=== PATIENT | male | born 1960 | race Caucasian/White ===

== ENCOUNTER 2017-04-16 00:02 | Emergency (ER) | payer OTHER ==
--- NOTE | 2017-04-17 06:06 | ED CLINICAL REPORT ---
Clinical Report - Physicians/Mid Levels [facility] [address] [place] [address] 04/17/2017 0:02 Patient: ROMERO WILLIS Time Seen: 00:12. Arrived- By private vehicle. Historian- patient. HISTORY OF PRESENT ILLNESS Chief Complaint: CHEST PAIN. At its maximum, severity described as severe. When seen in the E.D., it was gone. Modifying factors- relieved by nitroglycerin (two, given by paramedics). It is described as sharp and it is described as located in the right chest area and radiating to the left arm. This started last night at about 7 PM and is still present. It was abrupt in onset. Onset during emotional upset. No nausea. He has had difficulty breathing and has experienced diaphoresis. REVIEW OF SYSTEMS No pedal edema or edema, calf pain or pain or chills. No fever, sweats, palpitations, abdominal pain or black stools. No bloody stools, constipation, diarrhea, nausea or vomiting. No urinary problems. All systems otherwise negative, except as recorded above. PAST HISTORY PCP - Wesley. Problems: DVT - Deep Venous Thrombosis. Unstable Angina. Gastroesophageal Reflux. Heart Disease. Hypertension. Angioplasty 2004. Myocardial Infarction. Additional Surgeries: Hernia Repair. Leg vein bypass bryan. Medications: Warfarin 5mg on Monday. Warfarin Sodium Oral 2.5 mg, daily (%mg on Monday). Allergies: Morphine Sulfate. SOCIAL HISTORY Current every day heavy tobacco smoker (cigarette)- less than 1 pack per day. Heavy alcohol use; consumes six beers. No drug use. Residence: [place] he lives alone. FAMILY HISTORY Heart disease in first-degree relative (father); cancer in first-degree relative (mother). ADDITIONAL NOTES The nursing notes have been reviewed. PHYSICAL EXAM Vital Signs: 04/17/2017 00:15 BP: 113/69. HR: 89. RR: 16. O2 saturation: 91%. Temp: 98.3 F. Have been reviewed. Appearance: Anxious. He has ETOH on breath. Eyes: Pupils equal, round and reactive to light. ENT: Pharynx normal. Neck: Normal inspection. Neck supple. CVS: Normal heart rate and rhythm. Heart sounds normal. Respiratory: No respiratory distress. Breath sounds normal. Abdomen: Soft and nontender. Bowel sounds normal. No organomegaly. No mass. Back: Normal external inspection. Skin: Skin warm and dry. Normal skin color. Normal skin turgor. Extremities: Extremities exhibit normal ROM. No calf tenderness. No lower extremity edema. LABS, X-RAYS, AND EKG EKG: Rate: 93. Non-specific ST segment / T wave abnormalities. Changes present when compared to prior EKG. (). The study has been independently viewed by me. Abdominal CT: pancreas normal. No small bowel obstruction. Mild wall thickening of the urinary bladder could represent cystitis or chronic outlet obstruction. Advanced fatty infiltration of the liver. The study was interpreted by the radiologist and contemporaneously by me. Laboratory Tests: UA-Culture if indicated: (PATRICIA: 04/17/2017 00:50) ( [facility] 04/17/2017 01:10) Final results Test Result Flag Units (Reference) URINE COLOR YELLOW URINE APPEARANCE CLEAR URINE GLUCOSE NEGATIVE (NEGATIVE) URINE BILIRUBIN NEGATIVE (NEGATIVE) URINE KETONE NEGATIVE (NEGATIVE) URINE SPECIFIC GRAVITY <= 1.005 L (1.010-1.030) URINE PH 5.5 (5.0-8.0) URINE PROTEIN NEGATIVE (NEGATIVE) URINE UROBILINOGEN 0.2 EU/dL (0.2-1.0) URINE NITRITE NEGATIVE (NEGATIVE) URINE BLOOD TRACE-LYSED (NEGATIVE) URINE LEUK ESTERASE NEGATIVE (NEGATIVE) URINE RBC 0-1 rbc/hpf (0-1) URINE WBC 0-1 wbc/hpf (0-1) URINE EPITHELIAL CELLS 0-1 EPI/hpf (0-5) URINE BACTERIA NONE SEEN (NONE SEEN) URINE COMMENT CULT NOT INDICATED URINE CULTURES ARE SET-UP BASED ON THE FOLLOWING CRITERIA:POSITIVE NITRITEPOSITIVE LEUKOCYTE ESTERASEGREATER THAN 10 WHITE BLOOD CELLSMODERATE (2+) OR GREATER BACTERIA CBC w Diff: (PATRICIA: 04/17/2017 00:15) ( [facility] 04/17/2017 00:23) Final results Test Result Flag Units (Reference) WHITE BLOOD COUNT 6.7 K/uL (4.5-11.5) RED BLOOD COUNT 4.58 M/uL (4.50-5.90) HEMOGLOBIN 15.3 gm/dL (13.5-17.5) HEMATOCRIT 45.2 % (41.0-53.0) MEAN CELL VOLUME 99 fL (80-100) MEAN CORPUSCULAR HGB 33 pg (26-34) MEAN CORPUSCULAR HGB CONC 34 g/dL (31-37) RED CELL DISTRIBUTION WIDTH 13.3 % (11.6-14.8) PLATELET COUNT 215 K/uL (150-400) NEUTROPHIL % 37.7 L % (50-75) LYMPH % 48.8 H % (25-40) MONO % 10.3 % (3-14) EOSINOPHIL % 2.2 % (0-4) BASOPHIL % 1.0 % (0-2) PT with INR: (PATRICIA: 04/17/2017 00:15) ( Msg[facility]cvd 04/17/2017 00:34) Final results Test Result Flag Units (Reference) INR 1.7 H (0.8-1.2) Low Intensity Therapy: INR 1.5-2.0 PT range 18.5-23.1Mod.Intensity Therapy: INR 2.0-3.0 PT range 23.1-31.5High Intensity Therapy: INR 2.5-3.5 PT range 27.4-35.5High Intensity Therapy 2: INR 3.0-4.0 PT range 31.5-39.3 APTT 33 SECONDS (24-34) D-DIMER QUANTITATIVE < 0.27 L ug/mLFEU (0.27-0.52) The primary value of this quantitative assay relates toits negative predictive value (i.e. exclusion) of pulmonaryembolism/deep vein thrombosis/DIC.Elevated levels of d-dimer may also occur with:, age, cancer, inflammation, liver disease,post-op, infection, hematoma, coronary disease, peripheralarteriopathy, bleeding disorders and thrombolytic treatment.Results should be correlated with other clinical andradiological data.Testing Methodology: Latex Immunoassay Urine Drug Screen: (PATRICIA: 04/17/2017 00:50) ( [facility] Final results Test Result Flag Units (Reference) AMPHETAMINE/METHAMPHETAMINE NEGATIVE (NEGATIVE) BARBITURATE NEGATIVE (NEGATIVE) BENZODIAZEPINE NEGATIVE (NEGATIVE) CANNABINOID NEGATIVE (NEGATIVE) COCAINE NEGATIVE (NEGATIVE) ECSTASY NEGATIVE (NEGATIVE) METHADONE NEGATIVE (NEGATIVE) OPIATE NEGATIVE (NEGATIVE) The urine drug screen is a qualitative screening test fordrug overdose and abuse. All screen results should beconsidered as presumptive.Drugs screened for are as follows:BenzodiazepinesCocaineAmphetamines/MetamphetaminesTHC (Tetrahydrocannabinol)OpiatesBarbituratesEcstasyMethadonePositive results are unconfirmed. For confirmation, notifythe lab for the specimen to be sent to the reference lab.All confirmations must be performed by a differentmethodology.The ingestion of natural herbal and plant productscontaining Ephedra/Ephedra metabolites can produce in urineone or more substances capable of cross reacting withamphetamine/methamphetamine immunoassays. These testsprovide a preliminary result only. A more specificalternative chemical method must be used to obtain aconfirmed analytical result. Ethyl Alcohol: (PATRICIA: 04/17/2017 00:15) ( [facility] 04/17/2017 00:47) Final results Test Result Flag Units (Reference) ETHYL ALCOHOL 265 H mg/dL (3-10) BNP: (PATRICIA: 04/17/2017 00:15) ( [facility] 04/17/2017 00:40) Final results Test Result Flag Units (Reference) B-TYPE NATRIURETIC PEPTIDE 11.9 pg/ml (5-100) CMP: (PATRICIA: 04/17/2017 00:15) ( [facility] 04/17/2017 00:39) Final results Test Result Flag Units (Reference) GLUCOSE 91 mg/dL (70-110) BUN 6 L mg/dL (7-18) CREATININE 0.8 mg/dL (0.6-1.3) Estimated GFR >60 mL/min Estimated GFR- >60 mL/min Note: Persistent reduction over 3 months in eGFR<60 mL/min/1.73 m2 defines CKD. Patients with eGFR values>=60 mL/min/1.73 m2 may also have CKD if evidence ofpersistent proteinuria. Additional information may be foundat www.kidney.org. SODIUM 140 mmol/L (136-145) POTASSIUM 3.7 mmol/L (3.5-5.1) CHLORIDE 102 mmol/L (98-107) CARBON DIOXIDE 26 mmol/L (21-32) CALCIUM 8.4 L mg/dL (8.5-10.1) TOTAL PROTEIN 8.1 g/dL (6.4-8.2) ALBUMIN 3.5 g/dL (3.3-5.0) BILIRUBIN, TOTAL 0.7 mg/dL (0.0-1.0) ALKALINE PHOSPHATASE 91 U/L (46-116) AST (SGOT) 95 H U/L (15-37) ALT (SGPT) 104 H U/L (12-78) LIPASE 573 H U/L (73-393) AMYLASE 77 U/L (25-115) CPK 254 U/L (24-260) TROPONIN I <0.05 ng/mL (0.00-1.5) TROPONIN REFERENCE RANGE:<0.1 NEGATIVE0.1-1.5 INDETERMINANT>1.5 POSITIVE . PROGRESS AND PROCEDURES Patient/family counseled. Old medical records reviewed. Disposition: Discharged. Condition: stable. CLINICAL IMPRESSION Atypical chest pain Alcohol intoxication. Anxiety reaction. INSTRUCTIONS Avoid stimulants (such as cigarettes, coffee, cold medicines, sinus medicines, street drugs). No alcohol. Seek medical help to quit drinking. Warnings: Further evaluation is necessary. GENERAL WARNINGS: Return or contact your physician immediately if your condition worsens or changes unexpectedly, if not improving as expected, or if other problems arise. Your Current Medications: CONTINUE TAKING THE FOLLOWING MEDICATIONS: Warfarin 5mg on Monday*. Warfarin Sodium Oral : 2.5 mg daily, %mg on Monday. Understanding of the discharge instructions verbalized by patient. Follow-up with: William Olson MD, [facility], [phone], [facility], [address] [place] [address] [address], [address] Follow up today. Call for an appointment. (Electronically signed by Jaylan Jc MD 04/18/2017 18:02)
--- NOTE | 2017-04-17 06:06 | ED CLINICAL REPORT ---
Clinical Report - Physicians/Mid Levels [facility] [address] [place] [address] 04/17/2017 0:02 Patient: ROMERO WILLIS Time Seen: 00:12. Arrived- By private vehicle. Historian- patient. HISTORY OF PRESENT ILLNESS Chief Complaint: CHEST PAIN. At its maximum, severity described as severe. When seen in the E.D., it was gone. Modifying factors- relieved by nitroglycerin (two, given by paramedics). It is described as sharp and it is described as located in the right chest area and radiating to the left arm. This started last night at about 7 PM and is still present. It was abrupt in onset. Onset during emotional upset. No nausea. He has had difficulty breathing and has experienced diaphoresis. REVIEW OF SYSTEMS No pedal edema or edema, calf pain or pain or chills. No fever, sweats, palpitations, abdominal pain or black stools. No bloody stools, constipation, diarrhea, nausea or vomiting. No urinary problems. All systems otherwise negative, except as recorded above. PAST HISTORY PCP - Wesley. Problems: DVT - Deep Venous Thrombosis. Unstable Angina. Gastroesophageal Reflux. Heart Disease. Hypertension. Angioplasty 2004. Myocardial Infarction. Additional Surgeries: Hernia Repair. Leg vein bypass bryan. Medications: Warfarin 5mg on Monday. Warfarin Sodium Oral 2.5 mg, daily (%mg on Monday). Allergies: Morphine Sulfate. SOCIAL HISTORY Current every day heavy tobacco smoker (cigarette)- less than 1 pack per day. Heavy alcohol use; consumes six beers. No drug use. Residence: [place] he lives alone. FAMILY HISTORY Heart disease in first-degree relative (father); cancer in first-degree relative (mother). ADDITIONAL NOTES The nursing notes have been reviewed. PHYSICAL EXAM Vital Signs: 04/17/2017 00:15 BP: 113/69. HR: 89. RR: 16. O2 saturation: 91%. Temp: 98.3 F. Have been reviewed. Appearance: Anxious. He has ETOH on breath. Eyes: Pupils equal, round and reactive to light. ENT: Pharynx normal. Neck: Normal inspection. Neck supple. CVS: Normal heart rate and rhythm. Heart sounds normal. Respiratory: No respiratory distress. Breath sounds normal. Abdomen: Soft and nontender. Bowel sounds normal. No organomegaly. No mass. Back: Normal external inspection. Skin: Skin warm and dry. Normal skin color. Normal skin turgor. Extremities: Extremities exhibit normal ROM. No calf tenderness. No lower extremity edema. LABS, X-RAYS, AND EKG EKG: Rate: 93. Non-specific ST segment / T wave abnormalities. Changes present when compared to prior EKG. (). The study has been independently viewed by me. Abdominal CT: pancreas normal. No small bowel obstruction. Mild wall thickening of the urinary bladder could represent cystitis or chronic outlet obstruction. Advanced fatty infiltration of the liver. The study was interpreted by the radiologist and contemporaneously by me. Laboratory Tests: UA-Culture if indicated: (PATRICIA: 04/17/2017 00:50) ( [facility] 04/17/2017 01:10) Final results Test Result Flag Units (Reference) URINE COLOR YELLOW URINE APPEARANCE CLEAR URINE GLUCOSE NEGATIVE (NEGATIVE) URINE BILIRUBIN NEGATIVE (NEGATIVE) URINE KETONE NEGATIVE (NEGATIVE) URINE SPECIFIC GRAVITY <= 1.005 L (1.010-1.030) URINE PH 5.5 (5.0-8.0) URINE PROTEIN NEGATIVE (NEGATIVE) URINE UROBILINOGEN 0.2 EU/dL (0.2-1.0) URINE NITRITE NEGATIVE (NEGATIVE) URINE BLOOD TRACE-LYSED (NEGATIVE) URINE LEUK ESTERASE NEGATIVE (NEGATIVE) URINE RBC 0-1 rbc/hpf (0-1) URINE WBC 0-1 wbc/hpf (0-1) URINE EPITHELIAL CELLS 0-1 EPI/hpf (0-5) URINE BACTERIA NONE SEEN (NONE SEEN) URINE COMMENT CULT NOT INDICATED URINE CULTURES ARE SET-UP BASED ON THE FOLLOWING CRITERIA:POSITIVE NITRITEPOSITIVE LEUKOCYTE ESTERASEGREATER THAN 10 WHITE BLOOD CELLSMODERATE (2+) OR GREATER BACTERIA CBC w Diff: (PATRICIA: 04/17/2017 00:15) ( [facility] 04/17/2017 00:23) Final results Test Result Flag Units (Reference) WHITE BLOOD COUNT 6.7 K/uL (4.5-11.5) RED BLOOD COUNT 4.58 M/uL (4.50-5.90) HEMOGLOBIN 15.3 gm/dL (13.5-17.5) HEMATOCRIT 45.2 % (41.0-53.0) MEAN CELL VOLUME 99 fL (80-100) MEAN CORPUSCULAR HGB 33 pg (26-34) MEAN CORPUSCULAR HGB CONC 34 g/dL (31-37) RED CELL DISTRIBUTION WIDTH 13.3 % (11.6-14.8) PLATELET COUNT 215 K/uL (150-400) NEUTROPHIL % 37.7 L % (50-75) LYMPH % 48.8 H % (25-40) MONO % 10.3 % (3-14) EOSINOPHIL % 2.2 % (0-4) BASOPHIL % 1.0 % (0-2) PT with INR: (PATRICIA: 04/17/2017 00:15) ( MsgRcvd 04/17/2017 00:34) Final results Test Result Flag Units (Reference) INR 1.7 H (0.8-1.2) Low Intensity Therapy: INR 1.5-2.0 PT range 18.5-23.1Mod.Intensity Therapy: INR 2.0-3.0 PT range 23.1-31.5High Intensity Therapy: INR 2.5-3.5 PT range 27.4-35.5High Intensity Therapy 2: INR 3.0-4.0 PT range 31.5-39.3 APTT 33 SECONDS (24-34) D-DIMER QUANTITATIVE < 0.27 L ug/mLFEU (0.27-0.52) The primary value of this quantitative assay relates toits negative predictive value (i.e. exclusion) of pulmonaryembolism/deep vein thrombosis/DIC.Elevated levels of d-dimer may also occur with:, age, cancer, inflammation, liver disease,post-op, infection, hematoma, coronary disease, peripheralarteriopathy, bleeding disorders and thrombolytic treatment.Results should be correlated with other clinical andradiological data.Testing Methodology: Latex Immunoassay Urine Drug Screen: (PATRICIA: 04/17/2017 00:50) ( [facility] Final results Test Result Flag Units (Reference) AMPHETAMINE/METHAMPHETAMINE NEGATIVE (NEGATIVE) BARBITURATE NEGATIVE (NEGATIVE) BENZODIAZEPINE NEGATIVE (NEGATIVE) CANNABINOID NEGATIVE (NEGATIVE) COCAINE NEGATIVE (NEGATIVE) ECSTASY NEGATIVE (NEGATIVE) METHADONE NEGATIVE (NEGATIVE) OPIATE NEGATIVE (NEGATIVE) The urine drug screen is a qualitative screening test fordrug overdose and abuse. All screen results should beconsidered as presumptive.Drugs screened for are as follows:BenzodiazepinesCocaineAmphetamines/MetamphetaminesTHC (Tetrahydrocannabinol)OpiatesBarbituratesEcstasyMethadonePositive results are unconfirmed. For confirmation, notifythe lab for the specimen to be sent to the reference lab.All confirmations must be performed by a differentmethodology.The ingestion of natural herbal and plant productscontaining Ephedra/Ephedra metabolites can produce in urineone or more substances capable of cross reacting withamphetamine/methamphetamine immunoassays. These testsprovide a preliminary result only. A more specificalternative chemical method must be used to obtain aconfirmed analytical result. Ethyl Alcohol: (PATRICIA: 04/17/2017 00:15) ( [facility] 04/17/2017 00:47) Final results Test Result Flag Units (Reference) ETHYL ALCOHOL 265 H mg/dL (3-10) BNP: (PATRICIA: 04/17/2017 00:15) ( [facility] 04/17/2017 00:40) Final results Test Result Flag Units (Reference) B-TYPE NATRIURETIC PEPTIDE 11.9 pg/ml (5-100) CMP: (PATRICIA: 04/17/2017 00:15) ( [facility] 04/17/2017 00:39) Final results Test Result Flag Units (Reference) GLUCOSE 91 mg/dL (70-110) BUN 6 L mg/dL (7-18) CREATININE 0.8 mg/dL (0.6-1.3) Estimated GFR >60 mL/min Estimated GFR- >60 mL/min Note: Persistent reduction over 3 months in eGFR<60 mL/min/1.73 m2 defines CKD. Patients with eGFR values>=60 mL/min/1.73 m2 may also have CKD if evidence ofpersistent proteinuria. Additional information may be foundat www.kidney.org. SODIUM 140 mmol/L (136-145) POTASSIUM 3.7 mmol/L (3.5-5.1) CHLORIDE 102 mmol/L (98-107) CARBON DIOXIDE 26 mmol/L (21-32) CALCIUM 8.4 L mg/dL (8.5-10.1) TOTAL PROTEIN 8.1 g/dL (6.4-8.2) ALBUMIN 3.5 g/dL (3.3-5.0) BILIRUBIN, TOTAL 0.7 mg/dL (0.0-1.0) ALKALINE PHOSPHATASE 91 U/L (46-116) AST (SGOT) 95 H U/L (15-37) ALT (SGPT) 104 H U/L (12-78) LIPASE 573 H U/L (73-393) AMYLASE 77 U/L (25-115) CPK 254 U/L (24-260) TROPONIN I <0.05 ng/mL (0.00-1.5) TROPONIN REFERENCE RANGE:<0.1 NEGATIVE0.1-1.5 INDETERMINANT>1.5 POSITIVE . PROGRESS AND PROCEDURES Patient/family counseled. Old medical records reviewed. Disposition: Discharged. Condition: stable. CLINICAL IMPRESSION Atypical chest pain Alcohol intoxication. Anxiety reaction. INSTRUCTIONS Avoid stimulants (such as cigarettes, coffee, cold medicines, sinus medicines, street drugs). No alcohol. Seek medical help to quit drinking. Warnings: Further evaluation is necessary. GENERAL WARNINGS: Return or contact your physician immediately if your condition worsens or changes unexpectedly, if not improving as expected, or if other problems arise. Your Current Medications: CONTINUE TAKING THE FOLLOWING MEDICATIONS: Warfarin 5mg on Monday*. Warfarin Sodium Oral : 2.5 mg daily, %mg on Monday. Understanding of the discharge instructions verbalized by patient. Follow-up with: William Olson MD, [facility], [phone], [facility], [address] [place] [address] [address], [address] Follow up today. Call for an appointment. (Electronically signed by Jaylan Jc MD 04/18/2017 18:02)
--- NOTE | 2017-04-17 06:07 | ED ORDER SUMMARY ---
..... Patient: ROMERO WILLIS OrderSheet [facility] VisitID: [id number] [place], [place] [id number], M Registration Date/Time: 04/17/2017 ORDER SHEET Weight: 78.9 kg (stated) Allergies: Morphine Sulfate GENERAL ORDERS: Chest 1V Urgent (00:04/17/2017 Luis BACH) (Ack 0:15 [facility]) (1:05 JRomanelli R.N.) Talent Program Manager (Continuous) (00:04/17/2017 Luis BACH) (Ack 0:15 [facility]) (0:32 JRomanelli R.N.) CBC w Diff Urgent (00:04/17/2017 Luis BACH) (Ack 0:15 [facility]) (0:32 JRomanelli R.N.) (0:33 [facility]) CMP Urgent (00:04/17/2017 Luis BACH) (Ack 0:15 [facility]) (0:32 JRomanelli R.N.) (0:33 [facility]) UA-Culture if indicated Urgent (00:04/17/2017 Luis BACH) (Ack 0:15 [facility]ag[facility] Consult[facility]) (1:00 JRomanelli R.N.) PT with INR Urgent (00:04/17/2017 Luis BACH) (Ack 0:15 [facility]) (0:32 JRomanelli R.N.) (0:33 [facility]) PTT Urgent (00:04/17/2017 Luis BACH) (Ack 0:15 [facility]) (0:32 JRomanelli R.N.) (0:33 [facility]) BNP Urgent (00:04/17/2017 Luis BACH) (Ack 0:15 [facility]) (0:32 JRomanelli R.N.) (0:33 [facility]) D-Dimer Urgent (00:04/17/2017 Luis BACH) (Ack 0:15 [facility]) (0:32 JRomanelli R.N.) (0:33 [facility]) Amylase Urgent (00:04/17/2017 Luis BACH) (Ack 0:15 [facility]) (0:32 JRomanelli R.N.) (0:33 [facility]) Lipase Urgent (00:04/17/2017 Luis BACH) (Ack 0:15 [facility]) (0:32 JRomanelli R.N.) (0:33 [facility]) CPK Urgent (00:04/17/2017 Luis BACH) (Ack 0:15 [facility]) (0:32 JRomanelli R.N.) (0:33 [facility]) Troponin-I Urgent (00:04/17/2017 Luis BACH) (Ack 0:15 [facility]) (0:32 JRomanelli R.N.) (0:33 [facility]) Oxygen (2 L/min) (NC) (00:04/17/2017 Luis BACH) (Ack 0:15 [facility]) (0:32 JRomanelli R.N.) Pulse oximeter (00:04/17/2017 Luis BACH) (Ack 0:15 [facility]) (0:32 JRomanelli R.N.) EKG - ER Stat (00:04/17/2017 Luis BACH) (Ack 0:15 [facility]) (0:17 [facility]) Ethyl Alcohol Urgent (00:04/17/2017 omanelli R.N. verbal order read back to Luis BACH) (0:32 JRomanelli R.N.) (0:33 [facility]) (Cancelled: Duplicate Order0:48 Jose Felli R.N.) Ethyl Alcohol Urgent (00:04/17/2017 Luis BACH) (0:48 Luis BACH) (Cancelled: Other0:48 Luis BACH) (Cancelled: Duplicate Order0:49 [facility]) Urine Drug Screen Urgent (00:04/17/2017 Luis BACH) (Ack 0:50 [facility]) (1:05 Jose Felli R.N.) CT Abd/Pel w Cont (No) (see report) Urgent (00:46 04/17/2017 Luis BACH) (Ack 0:50 [facility]) (1:53 [facility]) CPK (Second set to be drawn at 5:15 AM) Urgent (03:55 04/17/2017 Luis BACH) (Ack 3:59 Sh[facility]) Troponin-I (Second set to be drawn at 5:15 AM) Urgent (03:55 04/17/2017 Luis BACH) (Ack 3:59 [facility]) MEDICATION ORDERS: Aspirin PO 325 mg (NOW) (00:13 04/17/2017 Luis BACH) (Ack 0:43 RMarsden R.N.) (Cancelled: Pt given ASA 81mg x 4 by EMS in transit1:04 Cally R.N.) IV FLUIDS: IV Saline Lock (00:13 04/17/2017 Luis BACH) (0:32 omanelli R.N.) IV NS : initial bolus 500 mL (1000 mL/hr), then 125 mL/hr for 4h (NOW); Urgent (00:46 04/17/2017 Luis BACH) (1:00 JRomanelli R.N.) ORDER SHEET NOTES: [Electronically signed by Hector Greene R.N. (06:04/17/2017)] [Electronically signed by Jaylan Jc MD (18:02 04/18/2017)] [Electronically locked/signed by Hector Greene R.N. (:04/17/2017)]
--- NOTE | 2017-04-17 06:07 | ED ORDER SUMMARY ---
..... Patient: ROMERO WILLIS OrderSheet [facility] VisitID: [id number] [place], [place] [id number], M Registration Date/Time: 04/17/2017 ORDER SHEET Weight: 78.9 kg (stated) Allergies: Morphine Sulfate GENERAL ORDERS: Chest 1V Urgent (00:04/17/2017 Luis BACH) (Ack 0:15 CHagerty ER Gastroenterology Manager) (1:05 JRomanelli R.N.) Documentation Analyst (Continuous) (00:04/17/2017 Luis BACH) (Ack 0:15 CHagerty ER Gastroenterology Manager) (0:32 JRomanelli R.N.) CBC w Diff Urgent (00:04/17/2017 Luis BACH) (Ack 0:15 CHagerty ER Gastroenterology Manager) (0:32 JRomanelli R.N.) (0:33 CHagerty ER Gastroenterology Manager) CMP Urgent (00:04/17/2017 Luis BACH) (Ack 0:15 CHagerty ER Gastroenterology Manager) (0:32 JRomanelli R.N.) (0:33 CHagerty ER Gastroenterology Manager) UA-Culture if indicated Urgent (00:04/17/2017 Luis BACH) (Ack 0:15 CHagclint ER Gastroenterology Manager) (1:00 JRomanelli R.N.) PT with INR Urgent (00:04/17/2017 Luis BACH) (Ack 0:15 CHagclint ER Gastroenterology Manager) (0:32 JRomanelli R.N.) (0:33 CHagerty ER Gastroenterology Manager) PTT Urgent (00:04/17/2017 Luis BACH) (Ack 0:15 CHagerty ER Gastroenterology Manager) (0:32 JRomanelli R.N.) (0:33 CHagerty ER Gastroenterology Manager) BNP Urgent (00:04/17/2017 Luis BACH) (Ack 0:15 CHagerty ER Gastroenterology Manager) (0:32 JRomanelli R.N.) (0:33 CHagerty ER Gastroenterology Manager) D-Dimer Urgent (00:04/17/2017 Luis BACH) (Ack 0:15 CHagerty ER Gastroenterology Manager) (0:32 JRomanelli R.N.) (0:33 CHagerty ER Gastroenterology Manager) Amylase Urgent (00:04/17/2017 Luis BACH) (Ack 0:15 CHagerty ER Gastroenterology Manager) (0:32 JRomanelli R.N.) (0:33 CHagerty ER Gastroenterology Manager) Lipase Urgent (00:04/17/2017 Luis BACH) (Ack 0:15 CHagerty ER Gastroenterology Manager) (0:32 JRomanelli R.N.) (0:33 CHagerty ER Gastroenterology Manager) CPK Urgent (00:04/17/2017 Luis BACH) (Ack 0:15 CHagerty ER Gastroenterology Manager) (0:32 JRomanelli R.N.) (0:33 CHagerty ER Gastroenterology Manager) Troponin-I Urgent (00:04/17/2017 Luis BACH) (Ack 0:15 CHagerty ER Gastroenterology Manager) (0:32 JRomanelli R.N.) (0:33 CHagerty ER Gastroenterology Manager) Oxygen (2 L/min) (NC) (00:04/17/2017 Luis BACH) (Ack 0:15 CHagerty ER Gastroenterology Manager) (0:32 JRomanelli R.N.) Pulse oximeter (00:04/17/2017 Luis BACH) (Ack 0:15 CHagerty ER Gastroenterology Manager) (0:32 JRomanelli R.N.) EKG - ER Stat (00:04/17/2017 Luis BACH) (Ack 0:15 CHagerty ER Gastroenterology Manager) (0:17 CHagerty ER Gastroenterology Manager) Ethyl Alcohol Urgent (00:04/17/2017 omanelli R.N. verbal order read back to Luis BACH) (0:32 JRomanelli R.N.) (0:33 CHagerty ER Gastroenterology Manager) (Cancelled: Duplicate Order0:48 Jsoe Felli R.N.) Ethyl Alcohol Urgent (00:04/17/2017 Luis BACH) (0:48 Luis BACH) (Cancelled: Other0:48 Luis BACH) (Cancelled: Duplicate Order0:49 CHagerty ER Gastroenterology Manager) Urine Drug Screen Urgent (00:04/17/2017 Luis BACH) (Ack 0:50 CHagerty ER Gastroenterology Manager) (1:05 Jose Felli R.N.) CT Abd/Pel w Cont (No) (see report) Urgent (00:46 04/17/2017 Luis BACH) (Ack 0:50 CHagerty ER Gastroenterology Manager) (1:53 CHagerty ER Gastroenterology Manager) CPK (Second set to be drawn at 5:15 AM) Urgent (03:55 04/17/2017 Luis BACH) (Ack 3:59 Shola ER Gastroenterology Manager) Troponin-I (Second set to be drawn at 5:15 AM) Urgent (03:55 04/17/2017 Luis BACH) (Ack 3:59 CHagerty ER Gastroenterology Manager) MEDICATION ORDERS: Aspirin PO 325 mg (NOW) (00:13 04/17/2017 Luis BACH) (Ack 0:43 RMarsden R.N.) (Cancelled: Pt given ASA 81mg x 4 by EMS in transit1:04 Cally R.N.) IV FLUIDS: IV Saline Lock (00:13 04/17/2017 Luis BACH) (0:32 omanelli R.N.) IV NS : initial bolus 500 mL (1000 mL/hr), then 125 mL/hr for 4h (NOW); Urgent (00:46 04/17/2017 Luis BACH) (1:00 JRomanelli R.N.) ORDER SHEET NOTES: [Electronically signed by Hecotr Greene R.N. (06:04/17/2017)] [Electronically signed by Jaylan Jc MD (18:02 04/18/2017)] [Electronically locked/signed by Hector Greene R.N. (:04/17/2017)]
--- NOTE | 2017-04-17 06:07 | ED NURSING NOTES ---
Clinical Report - Nurses [facility] [address] [place] [address] 04/17/2017 0:02 [id number] Triage time 00:10 Apr 17 2017. Chief Complaint: CHEST PAIN. Alert. ZAFAR COMA SCORE: [place] Coma Scale: 15- eyes open spontaneously (4); best verbal response- oriented x 4 (5); best motor response- obeys commands (6). --00:33 Hector Hassan R.N. 00:15 04/17/17. BP: 113/69. HR: 89. RR: 16. O2 saturation: 91% on room air. Temp: 98.3 F. --00:33 Hector Hassan R.N. Acuity: LEVEL 3. --00:33 Hector Hassan R.N. Weight: 78.9 kg stated. Height/Length: 67 inches Per Patient. BMI: 27.3. --00:20 Hector Hassan R.N. Medications Warfarin 5mg on Monday. Warfarin Sodium Oral 2.5 mg, daily (%mg on Monday). --00:26 Hector Hassan R.N. Allergies Morphine Sulfate. --00:26 Hector Hassan R.N. History Arrived by EMS. Historian: EMS and patient. Unaccompanied. ( Chest Pain starting about 9 hours ago. Pt states that he didn't feel good after his second beer.). Onset. (about 9 hours ago). Treatment SERVICE DESK LEAD: (Nitrospray x 2 and IV start, Aspirin 81 mg x 4 po given by EMS in transit). PAST MEDICAL HX: Heart disease. SOCIAL HX: Heavy tobacco smoker (cigarette)- less than 1 pack per day. Alcohol use; consumes six beers. No drug use. No infectious disease exposure. ABUSE ASSESSMENT: No report of abuse. FALL RISK ASSESSMENT: Fall risk assessment completed. No fall risk identified. NUTRITIONAL RISK ASSESSMENT: The nutritional risk assessment revealed no deficiencies. FUNCTIONAL ASSESSMENT: Functional assessment: no impairments noted. LEARNING NEEDS ASSESSMENT: The learning needs assessment revealed no barriers. SKIN INTEGRITY ASSESSMENT: Skin integrity risk assessment completed. No skin integrity risk identified. --00:33 Hector Hassan R.N. PROBLEMS: DVT - Deep Venous Thrombosis. Unstable Angina. Gastroesophageal Reflux. Heart Disease. Hypertension. Angioplasty 2005. Myocardial Infarction. --00:27 Hector Hassan R.N. ADDITIONAL SURGERIES: Hernia Repair. Leg vein bypass bryan. --00:27 Hector Hassan R.N. Interventions ID and allergy band on patient. To treatment room. --00:33 Hector Hassan R.N. NURSING PROGRESS NOTES 00:21 04/17/2017 Site #1 started via IV in the left antecubital space with an 18g angiocath, with aseptic technique and good blood return; one attempt. Blood drawn: rainbow set. Labeled in the presence of the patient and sent to the lab. Saline lock flushed with 10 mL saline (start by ALEXEY Bowser). --00:31 Hector Hassan R.N. EKG time: (00:10). EKG was performed by a tech and shown to the ED physician. --00:55 Agueda Gresham 00:50 04/17/2017 Started bag #1 1000 mL IV Fluids IV NS (Saline); bolus of 500 mL over 30 minute(s) then at 125 mL/hr over 4 hour(s) via site #1 via IV pump. Allergies verified and confirmed 5 rights. IV patency established. IV site checked: no pain, redness, or swelling. IV flushed thoroughly pre- and post-medication administration. --01:00 Hector Hassan R.N. 00:45. Oxygen administered. upstairs maid, pulse oximeter and NIBP monitor placed on patient; mobility architect- Lead II and V1; monitor alarms on. Patient gowned. Reassurance given. Patient identifiers checked. Call light placed in reach. Patient ready for evaluation- chart flagged and ED physician notified. --01:18 Hector Hassan R.N. 01:10 04/17/17. Patient ID band checked for patient name, birthdate and medical record number: patient confirmed. Clean catch urine collected with return of yellow-colored clear urine; odor is normal; sample sent to lab for urinalysis and culture. Specimen labeled in the presence of the patient. --01:18 Hector Hassan R.N. 03:14. ( patient is very concerned about missing the bus to [place] in the morning. He has removed himself from the monitor and has changed from his gown into his clothing. ED MD notified. Patient agreed to stay for a 05:15 trop draw after talking with MD. Patient repeatedly states "I just really have to get out of here. I think I just had anxiety. I dont know anyone here and I have to make it to the bus on time"). --05:23 Vaishnavi Sevilla R.N. 05:03. ( blood draw from existing IV. Patient continues to voice concern about making the bus on time. This RN showed patient the bus schedule for reassurance. Patient sitting calmly in room.). --05:25 Vaishnavi Sevilla R.N. 05:40 04/17/17. BP: 134/77. HR: 75. RR: 14. O2 saturation: 97%. Temp: deferred. Pain level now: 0/10. --05:41 Vaishnavi Sevilla R.N. 06:17. The patient is calm and resting quietly. RESPIRATORY: No respiratory distress. SKIN: Skin is warm and dry. Skin color within normal limits. --06:24 Hector Greene R.N. DISPOSITION / DISCHARGE 06:08 04/17/17. BP: 144/83. HR: 84. RR: 16. O2 saturation: 98% on room air. Pain level now: 0/10. --06:24 Hector Greene R.N. Departure time: 06:19. Condition at departure: stable. No learning barriers present. Discharge instructions provided and reviewed with the patient. Patient verbalized understanding. Written instructions provided in Yakut. The patient was discharged home and unaccompanied at time of discharge. He left the Emergency Department ambulatory and via bus and with fare provided. FALL RISK ASSESSMENT: Fall risk assessment completed. No fall risk identified. --06:24 Hector Greene R.N. 04:36 04/17/2017 IV Fluids IV NS Discontinued: bag #1 infused. Total amount infused: 1000 mL. IV patency established. IV site checked: no pain, redness, or swelling. IV flushed thoroughly. --06:26 eHctor Greene R.N. 06:17 04/17/2017 Site #1 removed upon discharge. Catheter intact. Bandage applied. --06:24 Hector Greene R.N. Locked/Released at 04/17/2017 6:26 by Hector Greene R.N.
--- NOTE | 2017-04-17 06:07 | ED NURSING NOTES ---
Clinical Report - Nurses [facility] [address] [place] [address] 04/17/2017 0:02 [id number] Triage time 00:10 Apr 17 2017. Chief Complaint: CHEST PAIN. Alert. ZAFAR COMA SCORE: [place] Coma Scale: 15- eyes open spontaneously (4); best verbal response- oriented x 4 (5); best motor response- obeys commands (6). --00:33 Hector Hassan R.N. 00:15 04/17/17. BP: 113/69. HR: 89. RR: 16. O2 saturation: 91% on room air. Temp: 98.3 F. --00:33 Hector Hassan R.N. Acuity: LEVEL 3. --00:33 Hector Hassan R.N. Weight: 78.9 kg stated. Height/Length: 67 inches Per Patient. BMI: 27.3. --00:20 Hector Hassan R.N. Medications Warfarin 5mg on Monday. Warfarin Sodium Oral 2.5 mg, daily (%mg on Monday). --00:26 Hector Hassan R.N. Allergies Morphine Sulfate. --00:26 Hector Hassan R.N. History Arrived by EMS. Historian: EMS and patient. Unaccompanied. ( Chest Pain starting about 9 hours ago. Pt states that he didn't feel good after his second beer.). Onset. (about 9 hours ago). Treatment DIVORCE LAWYER: (Nitrospray x 2 and IV start, Aspirin 81 mg x 4 po given by EMS in transit). PAST MEDICAL HX: Heart disease. SOCIAL HX: Heavy tobacco smoker (cigarette)- less than 1 pack per day. Alcohol use; consumes six beers. No drug use. No infectious disease exposure. ABUSE ASSESSMENT: No report of abuse. FALL RISK ASSESSMENT: Fall risk assessment completed. No fall risk identified. NUTRITIONAL RISK ASSESSMENT: The nutritional risk assessment revealed no deficiencies. FUNCTIONAL ASSESSMENT: Functional assessment: no impairments noted. LEARNING NEEDS ASSESSMENT: The learning needs assessment revealed no barriers. SKIN INTEGRITY ASSESSMENT: Skin integrity risk assessment completed. No skin integrity risk identified. --00:33 Hector Hassan R.N. PROBLEMS: DVT - Deep Venous Thrombosis. Unstable Angina. Gastroesophageal Reflux. Heart Disease. Hypertension. Angioplasty 2005. Myocardial Infarction. --00:27 Hector Hassan R.N. ADDITIONAL SURGERIES: Hernia Repair. Leg vein bypass bryan. --00:27 Hector Hassan R.N. Interventions ID and allergy band on patient. To treatment room. --00:33 Hector Hassan R.N. NURSING PROGRESS NOTES 00:21 04/17/2017 Site #1 started via IV in the left antecubital space with an 18g angiocath, with aseptic technique and good blood return; one attempt. Blood drawn: rainbow set. Labeled in the presence of the patient and sent to the lab. Saline lock flushed with 10 mL saline (start by ALEXEY Bowser). --00:31 Hector Hassan R.N. EKG time: (00:10). EKG was performed by a tech and shown to the ED physician. --00:55 Ageuda Gresham 00:50 04/17/2017 Started bag #1 1000 mL IV Fluids IV NS (Saline); bolus of 500 mL over 30 minute(s) then at 125 mL/hr over 4 hour(s) via site #1 via IV pump. Allergies verified and confirmed 5 rights. IV patency established. IV site checked: no pain, redness, or swelling. IV flushed thoroughly pre- and post-medication administration. --01:00 Hector Hassan R.N. 00:45. Oxygen administered. ballast cleaning operator, pulse oximeter and NIBP monitor placed on patient; glazier metal furniture- Lead II and V1; monitor alarms on. Patient gowned. Reassurance given. Patient identifiers checked. Call light placed in reach. Patient ready for evaluation- chart flagged and ED physician notified. --01:18 Hector Hassan R.N. 01:10 04/17/17. Patient ID band checked for patient name, birthdate and medical record number: patient confirmed. Clean catch urine collected with return of yellow-colored clear urine; odor is normal; sample sent to lab for urinalysis and culture. Specimen labeled in the presence of the patient. --01:18 Hector Hassan R.N. 03:14. ( patient is very concerned about missing the bus to [place] in the morning. He has removed himself from the monitor and has changed from his gown into his clothing. ED MD notified. Patient agreed to stay for a 05:15 trop draw after talking with MD. Patient repeatedly states "I just really have to get out of here. I think I just had anxiety. I dont know anyone here and I have to make it to the bus on time"). --05:23 Vaishnavi Sevilla R.N. 05:03. ( blood draw from existing IV. Patient continues to voice concern about making the bus on time. This RN showed patient the bus schedule for reassurance. Patient sitting calmly in room.). --05:25 Vaishnavi Sevilla R.N. 05:40 04/17/17. BP: 134/77. HR: 75. RR: 14. O2 saturation: 97%. Temp: deferred. Pain level now: 0/10. --05:41 Vaishnavi Sevilla R.N. 06:17. The patient is calm and resting quietly. RESPIRATORY: No respiratory distress. SKIN: Skin is warm and dry. Skin color within normal limits. --06:24 Hector Greene R.N. DISPOSITION / DISCHARGE 06:08 04/17/17. BP: 144/83. HR: 84. RR: 16. O2 saturation: 98% on room air. Pain level now: 0/10. --06:24 Hector Greene R.N. Departure time: 06:19. Condition at departure: stable. No learning barriers present. Discharge instructions provided and reviewed with the patient. Patient verbalized understanding. Written instructions provided in Kinyarwanda. The patient was discharged home and unaccompanied at time of discharge. He left the Emergency Department ambulatory and via bus and with fare provided. FALL RISK ASSESSMENT: Fall risk assessment completed. No fall risk identified. --06:24 Hector Greene R.N. 04:36 04/17/2017 IV Fluids IV NS Discontinued: bag #1 infused. Total amount infused: 1000 mL. IV patency established. IV site checked: no pain, redness, or swelling. IV flushed thoroughly. --06:26 Hector Greene R.N. 06:17 04/17/2017 Site #1 removed upon discharge. Catheter intact. Bandage applied. --06:24 Hector Greene R.N. Locked/Released at 04/17/2017 6:26 by Hector Greene R.N.
--- NOTE | 2017-04-17 07:57 | DIAGNOSTIC IMAGING REPORT ---
PROCEDURE: XR CHEST 1 VIEW INDICATION: CHEST PAIN TECHNIQUE: Single view chest. 01:03 hours COMPARISON: 01/12/2012 FINDINGS: Very low lung volumes, chronic. Stable cardiomediastinal contour. No central venous congestion. The visible lung quintero are clear. Mild degenerative changes in the shoulders. IMPRESSION: 1. Very low lung volumes. 2. No acute process, stable compared to the previous study.
--- NOTE | 2017-04-17 08:28 | DIAGNOSTIC IMAGING REPORT ---
PROCEDURE: ABDOMEN/PELVIS WITH CONTRAST CLINICAL INDICATION: PANCREATITIS TECHNIQUE: 125 ml of Isovue 300 were injected intravenously and axial images were obtained of the abdomen and pelvis with sagittal and coronal reformations. COMPARISON: None. FINDINGS: ABDOMEN: Moderate strandy bibasilar atelectasis. Deformity of prior left-sided lateral rib fractures. No pleural effusions. The profound hypodensity throughout the liver with relative sparing of the inferior vena cava. No liver masses. Slightly thickened, nodular appearance to the adrenal glands, left worse than right. Normal pancreas. Surgically absent spleen. Tiny cortical medullary right renal cyst. Small right lower pole renal scarring. The abdominal aorta is normal in its course and caliber. Minimal calcific atherosclerosis. There are no suspicious calcifications, retroperitoneal adenopathy or masses. The stomach, upper bowel loops, and mesentery are normal. Intact anterior abdominal wall. No free fluid or inflammation. PELVIS: The appendix and pelvic small bowel loops are normal. Normal amount of stool in the colon and rectum. The prostate gland is enlarged. The urinary bladder wall is mildly thickened. The seminal vesicles, and pelvic vessels are normal. Small fat containing left inguinal hernia. No adenopathy, free fluid, or pelvic mass. A partial ankylosis right sacroiliac joint. Severe disc height loss at L5-S1. Mild degeneration of the right hip joint. IMPRESSION: 1. Severe hepatic steatosis. 2. No CT evidence of pancreatic inflammation. 3. Mild wall thickening of the urinary bladder which may be secondary to cystitis or outlet obstruction. 4. Mildly enlarged prostate gland. 5. Preliminary report by Dr. Mesfin Hurd of [facility] radiology. All CT scans at this facility use dose modulation, iterative reconstruction, and/or weight-based dosing when appropriate to reduce radiation dose to as low as reasonably achievable.
--- NOTE | 2017-04-18 18:03 | ED DISCHARGE INSTRUCTIONS ---
Patient: ROMERO WILLIS General Instructions [facility] VisitID: [id number] [place] [address] 56y, M Registration Date/Time: 04/17/2017 Atypical chest pain Alcohol intoxication. Anxiety reaction. INSTRUCTIONS Avoid stimulants (such as cigarettes, coffee, cold medicines, sinus medicines, street drugs). No alcohol. Seek medical help to quit drinking. Warnings: Further evaluation is necessary. GENERAL WARNINGS: Return or contact your physician immediately if your condition worsens or changes unexpectedly, if not improving as expected, or if other problems arise. Your Current Medications: CONTINUE TAKING THE FOLLOWING MEDICATIONS: Warfarin 5mg on Monday*. Warfarin Sodium Oral : 2.5 mg daily, %mg on Monday. Understanding of the discharge instructions verbalized by patient. Follow-up with: William Olson MD, [facility], [phone], [facility], [address] [place] [address].[place] [address] Follow up today. Call for an appointment. ADDITIONAL INFORMATION Chest Pain, Uncertain Cause Chest pain can happen for a number of reasons. Sometimes the cause can not be determined. If yourcondition does not seem serious, and your pain does not appear to be coming from your heart, your doctor may recommend watching it closely. Sometimes the signs of a serious problem take more time to appear. Therefore, watch for the warning signs listed below. Home care After your visit, follow these recommendations: Rest today and avoid strenuous activity. Take any prescribed medicine as directed. Follow-up care Follow up with your doctor or this facility as instructed or if you do not start to feel better within 24 hours. Call 911 Get immediate medical attention if any of the following occur: A change in the type of pain: if it feels different, becomes more severe, lasts longer, or begins to spread into your shoulder, arm, neck, jaw or back Shortness of breath or increased pain with breathing Weakness, dizziness, or fainting Rapid heart beat Get prompt medical attention Call your doctor right away if any of the following occur: Cough with dark colored sputum (phlegm) or blood Fever of 100.4F(38C) or higher, or as directed by your health care provider Swelling, pain or redness in one leg Alcohol Intoxication Alcohol intoxication occurs when you drink alcohol faster than your liver can remove it from your system. Alcohol intoxication affects your judgment and coordination. Very high blood alcohol levels can cause coma, very slow breathing and even . If you drink alcohol every day, this may gradually cause permanent damage to your liver, brain, heart, pancreas and other organs. Alcohol use during may cause permanent damage to the growing baby. Home Care: Do not drink any more alcohol. DO NOT DRIVE until all effects of the alcohol have worn off. Get lots of rest over the next few days. Drink plenty of water and other non-alcoholic liquids. Try to eat regular meals. If you have been drinking heavily on a daily basis, you may go through alcohol withdrawl. This is also called the shakes or DTs. The usual symptoms last 3 to 4 days and may include nervousness, shakiness, nausea, sweating or sleeplessness. During this time, it is best that you stay with family or friends who can help and support you. You can also admit yourself to a residential detox program. If your symptoms are severe, contact your doctor for medicines to help. Follow Up: If alcohol is causing a problem in your life, these and other organizations can help you: Alcoholics Anonymous offers support through a self-help fellowship. There are no dues or fees. See the Yellow Pages and call for time and place of meetings. www.aa.org [employer] offers support to families of alcohol users. 652.123.2607 www.al-anon.org National [place] On Alcoholism And Drug Dependence 607-725-9635 www.ncadd.org There are also inpatient or residential alcohol detox programs. Check the Internet or phonebook Yellow Pages under Drug Abuse & Treatment Centers. Get Prompt Medical Attention if any of the following occur: there) Stress Reaction Anxiety is the feeling we all get when we think something bad might happen. It is a normal response to stress and usually causes only a mild reaction. When anxiety becomes more severe, emotions may interfere with daily life. In some cases, you may not even be aware of what it is youre anxious about! During an anxiety reaction, you may feel like you are helpless, nervous, depressed or irritable. Your body may show signs of anxiety in many ways. You may experience dry mouth, shakiness, dizziness, weakness, trouble breathing, chest pressure, headache, nausea, diarrhea, tiredness, inability to sleep or sexual problems. Home Care: 1) Try to locate the sources of stress in your life. They may not be obvious! These may include: -- Daily hassles of life which pile up (traffic jams, missed appointments, car troubles, etc.) -- Major life changes, both good (new baby, job promotion) and bad (loss of job, loss of loved one) -- Overload: feeling that you have too many responsibilities and can't take care of all of them at once -- Feeling helpless, feeling that your problems are beyond what youre able to solve 2) Notice how your body reacts to stress. Learn to listen to your body signals. This will help you take action before the stress becomes severe. 3) When you can, do something about the source of your stress. (Avoid hassles, limit the amount of change that happens in your life at one time and take a break when you feel overloaded). 4) Unfortunately, many stressful situations cannot be avoided. It is necessary to learn HOW TO MANAGE STRESS better. There are many proven methods that will reduce your anxiety. These include simple things like exercise, good nutrition and adequate rest. Also, there are certain techniques that are helpful: relaxation and breathing exercises, visualization, biofeedback and meditation. For more information about this, consult your doctor or go to a local bookstore and review the many books and tapes available on this subject. Follow Up If you feel that your anxiety is not responding to self-help measures, contact your doctor or make an appointment with a counselor. Get Prompt Medical Attention if any of the following occur: -- Your symptoms get worse -- Chest pain or trouble breathing -- Severe headache not relieved by rest and mild pain reliever -- Rapid or irregular heartbeat, fainting You have been given the following additional information: Chest Pain, Uncertain Cause Alcohol Intoxication Anxiety Reaction (Electronically signed by Jaylan Jc MD 04/18/2017 18:02)
--- NOTE | 2017-04-18 18:03 | ED MAR SUMMARY ---
..... Medication Administration Record [facility] [address] [place] [address] Patient: ROMERO WILLIS Visit ID: [id number] 56y, M Weight: 78.9 kg Height/Length: 67 in BMI: 27.3 ALLERGIES: Morphine Sulfate Start 00:50 04/17/2017 Hector Hassan RBenitaNBenita, Stop 04:36 04/17/2017 Hector Greene RBenitaNBenita Medication Administered: IV NS (SALINE), Dose: IV Fluids over 4 hour(s), Rate: 125 mL/hr, Bolus: 500 mL over 30 minute(s), Dispensed: 1000 mL bag, Site: #1 left AC. Medication Ordered: IV NS : initial bolus 500 mL (1000 mL/hr), then 125 mL/hr for 4h (NOW); Urgent.
--- NOTE | 2017-04-18 18:03 | ED MAR SUMMARY ---
..... Medication Administration Record [facility] [address] [place] [address] Patient: ROMERO WILLIS Visit ID: [id number] 56y, M Weight: 78.9 kg Height/Length: 67 in BMI: 27.3 ALLERGIES: Morphine Sulfate Start 00:50 04/17/2017 Hector Hassan RBenitaNBenita, Stop 04:36 04/17/2017 Hector Greene RBenitaNBenita Medication Administered: IV NS (SALINE), Dose: IV Fluids over 4 hour(s), Rate: 125 mL/hr, Bolus: 500 mL over 30 minute(s), Dispensed: 1000 mL bag, Site: #1 left AC. Medication Ordered: IV NS : initial bolus 500 mL (1000 mL/hr), then 125 mL/hr for 4h (NOW); Urgent.
--- NOTE | 2017-04-18 18:03 | ED MED RECONCILIATION SUMMARY ---
Patient: ROMERO WILLIS Medication Reconciliation Report [facility] VisitID: [id number] [address] [place] [address] 56y, M Registration Date/Time: 04/17/2017 Weight: 78.9 kg Height/Length: 67 in. BMI: 27.3 ALLERGIES: Morphine Sulfate The patient's Home Medications are listed below: CONTINUE TAKING THE FOLLOWING MEDICATIONS: Warfarin 5mg on Monday Warfarin Sodium Oral 2.5 mg, daily, %mg on Monday The source(s) of the original Home Medication information: Not obtained. The following Medications were given to the patient in the Emergency Department: IV NS IV Fluids bolus 500 mL over 30 minute(s), then 125 mL/hr, administered: 04/17/2017 12:50:00 AM The following Medications were prescribed to the patient: None.
--- NOTE | 2017-04-18 18:03 | ED MED RECONCILIATION SUMMARY ---
Patient: ROMERO WILLIS Medication Reconciliation Report [facility] VisitID: [id number] [address] [place] [address] 56y, M Registration Date/Time: 04/17/2017 Weight: 78.9 kg Height/Length: 67 in. BMI: 27.3 ALLERGIES: Morphine Sulfate The patient's Home Medications are listed below: CONTINUE TAKING THE FOLLOWING MEDICATIONS: Warfarin 5mg on Monday Warfarin Sodium Oral 2.5 mg, daily, %mg on Monday The source(s) of the original Home Medication information: Not obtained. The following Medications were given to the patient in the Emergency Department: IV NS IV Fluids bolus 500 mL over 30 minute(s), then 125 mL/hr, administered: 04/17/2017 12:50:00 AM The following Medications were prescribed to the patient: None.
--- NOTE | 2017-04-18 18:03 | ED DISCHARGE INSTRUCTIONS ---
Patient: ROMERO WILLIS General Instructions [facility] VisitID: [id number] [place] [address] 56y, M Registration Date/Time: 04/17/2017 Atypical chest pain Alcohol intoxication. Anxiety reaction. INSTRUCTIONS Avoid stimulants (such as cigarettes, coffee, cold medicines, sinus medicines, street drugs). No alcohol. Seek medical help to quit drinking. Warnings: Further evaluation is necessary. GENERAL WARNINGS: Return or contact your physician immediately if your condition worsens or changes unexpectedly, if not improving as expected, or if other problems arise. Your Current Medications: CONTINUE TAKING THE FOLLOWING MEDICATIONS: Warfarin 5mg on Monday*. Warfarin Sodium Oral : 2.5 mg daily, %mg on Monday. Understanding of the discharge instructions verbalized by patient. Follow-up with: William Olson MD, [facility], [phone], [facility], [address] [place] [address].[place] [address] Follow up today. Call for an appointment. ADDITIONAL INFORMATION Chest Pain, Uncertain Cause Chest pain can happen for a number of reasons. Sometimes the cause can not be determined. If yourcondition does not seem serious, and your pain does not appear to be coming from your heart, your doctor may recommend watching it closely. Sometimes the signs of a serious problem take more time to appear. Therefore, watch for the warning signs listed below. Home care After your visit, follow these recommendations: Rest today and avoid strenuous activity. Take any prescribed medicine as directed. Follow-up care Follow up with your doctor or this facility as instructed or if you do not start to feel better within 24 hours. Call 911 Get immediate medical attention if any of the following occur: A change in the type of pain: if it feels different, becomes more severe, lasts longer, or begins to spread into your shoulder, arm, neck, jaw or back Shortness of breath or increased pain with breathing Weakness, dizziness, or fainting Rapid heart beat Get prompt medical attention Call your doctor right away if any of the following occur: Cough with dark colored sputum (phlegm) or blood Fever of 100.4F(38C) or higher, or as directed by your health care provider Swelling, pain or redness in one leg Alcohol Intoxication Alcohol intoxication occurs when you drink alcohol faster than your liver can remove it from your system. Alcohol intoxication affects your judgment and coordination. Very high blood alcohol levels can cause coma, very slow breathing and even . If you drink alcohol every day, this may gradually cause permanent damage to your liver, brain, heart, pancreas and other organs. Alcohol use during may cause permanent damage to the growing baby. Home Care: Do not drink any more alcohol. DO NOT DRIVE until all effects of the alcohol have worn off. Get lots of rest over the next few days. Drink plenty of water and other non-alcoholic liquids. Try to eat regular meals. If you have been drinking heavily on a daily basis, you may go through alcohol withdrawl. This is also called the shakes or DTs. The usual symptoms last 3 to 4 days and may include nervousness, shakiness, nausea, sweating or sleeplessness. During this time, it is best that you stay with family or friends who can help and support you. You can also admit yourself to a residential detox program. If your symptoms are severe, contact your doctor for medicines to help. Follow Up: If alcohol is causing a problem in your life, these and other organizations can help you: Alcoholics Anonymous offers support through a self-help fellowship. There are no dues or fees. See the Yellow Pages and call for time and place of meetings. www.aa.org [employer] offers support to families of alcohol users. 445.786.8940 www.al-anon.org [employer] [place] On Alcoholism And Drug Dependence 484-652-2238 www.ncadd.org There are also inpatient or residential alcohol detox programs. Check the Internet or phonebook Yellow Pages under Drug Abuse & Treatment Centers. Get Prompt Medical Attention if any of the following occur: there) Stress Reaction Anxiety is the feeling we all get when we think something bad might happen. It is a normal response to stress and usually causes only a mild reaction. When anxiety becomes more severe, emotions may interfere with daily life. In some cases, you may not even be aware of what it is youre anxious about! During an anxiety reaction, you may feel like you are helpless, nervous, depressed or irritable. Your body may show signs of anxiety in many ways. You may experience dry mouth, shakiness, dizziness, weakness, trouble breathing, chest pressure, headache, nausea, diarrhea, tiredness, inability to sleep or sexual problems. Home Care: 1) Try to locate the sources of stress in your life. They may not be obvious! These may include: -- Daily hassles of life which pile up (traffic jams, missed appointments, car troubles, etc.) -- Major life changes, both good (new baby, job promotion) and bad (loss of job, loss of loved one) -- Overload: feeling that you have too many responsibilities and can't take care of all of them at once -- Feeling helpless, feeling that your problems are beyond what youre able to solve 2) Notice how your body reacts to stress. Learn to listen to your body signals. This will help you take action before the stress becomes severe. 3) When you can, do something about the source of your stress. (Avoid hassles, limit the amount of change that happens in your life at one time and take a break when you feel overloaded). 4) Unfortunately, many stressful situations cannot be avoided. It is necessary to learn HOW TO MANAGE STRESS better. There are many proven methods that will reduce your anxiety. These include simple things like exercise, good nutrition and adequate rest. Also, there are certain techniques that are helpful: relaxation and breathing exercises, visualization, biofeedback and meditation. For more information about this, consult your doctor or go to a local bookstore and review the many books and tapes available on this subject. Follow Up If you feel that your anxiety is not responding to self-help measures, contact your doctor or make an appointment with a counselor. Get Prompt Medical Attention if any of the following occur: -- Your symptoms get worse -- Chest pain or trouble breathing -- Severe headache not relieved by rest and mild pain reliever -- Rapid or irregular heartbeat, fainting You have been given the following additional information: Chest Pain, Uncertain Cause Alcohol Intoxication Anxiety Reaction (Electronically signed by Jaylan Jc MD 04/18/2017 18:02)
== END 2017-04-17 06:19 | disposition home or self-care (01) ==
LOC: ED SRH 00:02
DX: R07.89 Other chest pain (principal); F10.129 Alcohol abuse with intoxication, unspecified; F41.1 Generalized anxiety disorder; I10 Essential (primary) hypertension; I25.2 Old myocardial infarction; Z79.01 Long term (current) use of anticoagulants; Z88.5 Allergy status to narcotic agent; Z72.0 Tobacco use
CPT/HCPCS: 90004; 90100; 90616; 91320; 91556; 92010; 92235; 92530; 92610; 92760; 92761; 92762; 92763; 92764; 92765; 92766; 92767; 94001; 94060; 95059